=== PATIENT | female | born 1940 | race Caucasian/White ===

== ENCOUNTER 2018-06-11 18:40 | Inpatient (IN) | payer OTHER, BC ==
[2018-06-11 20:02] LABS: PLATELET COUNT 342 10^3/uL (150-400)
[2018-06-11] MEDS ORDERED: traMADol 50 MG TAB PO PRN (21:17)
[2018-06-11] MEDS ORDERED: ONDANSETRON DISINTEGRATING 4 MG TAB PO PRN (21:17)
[2018-06-11] MEDS ORDERED: ONDANSETRON 4 MG/2 ML VIAL IVP PRN (21:17)
[2018-06-11] MEDS ORDERED: D5W 1/2 NS W/ 20 KCl/L 1,000 ML IV SCH (21:30)
--- NOTE | 2018-06-11 21:39 | GHP ---
[f rep st] HISTORY AND PHYSICAL DATE OF ADMISSION: 06/11/2018 CHIEF COMPLAINT: Traumatic wound right lower extremity. HISTORY OF PRESENT ILLNESS: The patient is a 77-year-old woman who was on Eliquis for atrial fibrill ation, who sustained an injury to the medial aspect of her right lower extremity a little over 10 day s ago. She recently traveled from [place] to [place] to go on a trip to [place]. She was seen at [facility] due to increased pain at the site. A local debridement was performed and there was concer n for tracking and infection and was referred to come to the emergency room. She is having more troub le walking and even difficulty getting up to go to the bathroom which is having her limit her p.o. in take due to the pain. PAST MEDICAL HISTORY: Hypothyroidism, hypertension, atrial fibrillation, hearing loss. ALLERGIES: Doxycycline, epinephrine. SOCIAL HISTORY: No tobacco products. FAMILY HISTORY: Noncontributory. REVIEW OF SYSTEMS: No fevers or chills, extreme pain by the right lower extremity. PHYSICAL EXAM: GENERAL: A pleasant, well nourished, thin woman sitting in bed. Daughter at bedside. VITALS: 37.1, 68, 154/62, 20, 93% on room air. HEENT: Normocephalic. No gross hearing deficits. Pupils equal and round. No scleral icterus. Mucous membranes moist. LUNGS: Clear to auscultation bilaterally. CARDIAC: Irregular. EXTREMITIES: Wound on the medial aspect of her right lower extremit y. There is a traumatic wound that is at least 1 cm deep. I am unable to fully determine the extent of the wound as it is tender out of proportion. There is a small amount of erythema but not ascendi ng and minimal NEURO: Grossly intact. PSYCH: Mood and affect normal. IMPRESSION/PLAN: A 77-year-old woman with chronic anticoagulation for atrial fibrillation who sustai terrell a traumatic wound to her right lower extremity. I suspect there is retained hematoma and that th e wound is larger than it appears on the surface. She is just too tender to have this explored even with lidocaine in the emergency room. I will take her to the operating room to debride the wound, sk in and soft tissue. We talked about postoperative wound care. She will need to cancel her trip to [facility] that is planned for tomorrow /[id number]/CARLTONL
[2018-06-11] MEDS: ACETAMINOPHEN 325 MG TAB PO PRN (22:35)
--- NOTE | 2018-06-11 23:24 | EDPHY ---
H & P Stated Complaint: RLE wound - Personal History Current Tetanus/Diphtheria Vaccine: Yes - Medical/Surgical History Hx Asthma: No Hx Chronic Respiratory Disease: No Hx Diabetes: No Hx Cardiac Disease: No Hx Renal Disease: No Hx Cirrhosis: No Hx Alcoholism: No Other PMH: a-fib, GERD, - Social History Smoking Status: Former smoker Time Seen by Provider: 06/11/18 18:57 HPI/ROS: Chief complaint: Right lower extremity wound History of present illness: This is a 77-year-old female, on Eliquis for atrial fibrillation, visiting from out [facility], who presents for a right lower extremity wound. Patient fell approximately 10 days ago back home in [place]. She sustained a wound. She was evaluated by her doctor including imaging studies. The wound was cleaned and dressed. However, the wound persists. She reports an open wound with persistent pain and bleeding. She went to an urgent care today where the wound was cleaned and debrided. She was sent here for further care given the extent of the wound. Review of systems: A 10 point review of systems was obtained and other than described above was neck (Geoffrey Forman) - Physical Exam Exam: General Appearance: Alert and no distress. Eyes: Pupils equal and round no injection. Respiratory: Chest is non tender, lungs are clear to auscultation. Cardiac: regular rate and rhythm Gastrointestinal: Abdomen is soft and non tender, no masses, bowel sounds normal. Musculoskeletal: Neck is supple and non tender. Extremities have full range of motion and are non tender. Skin: Patient has a large wound to the medial aspect of the distal right lower leg. There is oozing of blood. No obvious purulent material. There is surrounding erythema and edema. (Geoffrey Forman) Constitutional: Initial Vital Signs Temperature (C) 37.1 C 06/11/18 18:45 Heart Rate 68 06/11/18 18:45 Respiratory Rate 20 06/11/18 18:45 Blood Pressure 154/62 H 06/11/18 18:45 O2 Sat (%) 93 06/11/18 18:45 O2 Delivery Mode Room Air Allergies/Adverse Reactions: doxycycline Allergy (Verified 06/11/18 18:50) epinephrine Allergy (Verified 06/11/18 18:50) Home Medications: Medication Instructions Recorded Apixaban [Eliquis] 2.5 mg PO BID 06/11/18 Atenolol [Tenormin 25 mg (*)] 25 mg PO BID 06/11/18 Esomeprazole Magnesium [Nexium 20 mg PO DAILY 06/11/18 24Hr] Herbals/Supplements -Info Only 1 ea PO DAILY 06/11/18 Latanoprost 1 drop EACHEYE HS 06/11/18 Levothyroxine [Synthroid 112 mcg 112 mcg PO DAILY06 06/11/18 (*)] Losartan Potassium [Cozaar 50 mg 50 mg PO BID 06/11/18 (*)] Propafenone HCl 225 mg PO TID 06/11/18 Acetaminophen [Tylenol 325mg (*)] 650 mg PO Q4H PRN tab 06/12/18 Cephalexin [Keflex (*)] 500 mg PO QID #20 cap 06/12/18 traMADol [Ultram 50 mg (*)] 50 mg PO Q6HRS PRN #20 tab 06/12/18 Medical Decision Making - Diagnostics Imaging: I viewed and interpreted images myself ED Course/Re-evaluation: Patient is seen in conjunction with my secondary supervising physician Dr. Thom Jarvis. Patient presents for a persistent wound. This appears to be a nonhealing wound with concern for associated infection. General surgery, Dr. Bernadette Melendez has consulted on this patient. She will admit this patient. Start her on Ancef. Take her to the operating room tomorrow for further evaluation and care. The plan has been discussed with the patient who voiced understanding and agreement with it. (Geoffrey Forman) Differential Diagnosis: Included but not limited to persistent wound, abscess, cellulitis, osteomyelitis (Geoffrey Forman) Other Provider: I did evaluate this patient independently. It is difficult to tell whether this represents a wound infection or simply poorly healed wound. There is slight erythema surrounding but no warmth. No obvious purulence. Serosanguineous fluid present. (Thom Jarvis) - Data Points Laboratory Results: Laboratory Results 06/11/18 19:50 06/11/18 19:50 Medications Given: Acetaminophen (Tylenol) 650 mg PO Q4H PRN PRN Reason: Pain, Mild Stop: 12/08/18 21:16 Last Admin: 06/12/18 05:40 Dose: 650 mg Cephalexin HCl (Keflex) 500 mg PO Q6HRS MYCHAL PRN Reason: Protocol Stop: 07/12/18 11:59 Last Admin: 06/12/18 12:12 Dose: 500 mg Propafenone HCl (Rythmol) 225 mg PO TID [facility] Stop: 12/09/18 15:59 Last Admin: 06/12/18 15:05 Dose: 225 mg Discontinued Medications Bupivacaine HCl (Sensorcaine 0.5% Vial) Confirm Administered Dose 30 ml .ROUTE .STK-MED ONE Stop: 06/12/18 08:14 Last Admin: 06/12/18 08:50 Dose: 10 ml Cefazolin Sodium/Dextrose (Ancef 1 Gm (Premix)) 50 mls @ 200 mls/hr IV Q8HRS [facility] PRN Reason: Protocol Stop: 07/11/18 21:59 Last Admin: 06/12/18 05:33 Dose: 50 mls Potassium Chloride/Dextrose/Sod Cl (D5w 1/2 Ns W/ 20 Kcl/L) 1,000 mls @ 50 mls/ hr IV CONT [facility] Stop: 12/08/18 21:29 Last Admin: 06/11/18 22:41 Dose: 1,000 mls Lidocaine HCl (Lidocaine Hcl 1%) Confirm Administered Dose 300 mg .ROUTE .STK- MED ONE Stop: 06/12/18 08:13 Last Admin: 06/12/18 08:50 Dose: 100 mg Miscellaneous Medication (Propafenone Hcl [Propafenone Hcl]) 225 mg PO TID [facility] Stop: 12/09/18 11:24 Last Admin: 06/12/18 14:32 Dose: Not Given Sodium Bicarbonate (Sodium Bicarbonate) Confirm Administered Dose 50 meq .ROUTE .STK-MED ONE Stop: 06/12/18 08:14 Last Admin: 06/12/18 09:14 Dose: Not Given Departure - Departure Disposition: [facility] Acute Clinical Impression: Open wound of skin
[2018-06-12] MEDS: ACETAMINOPHEN 325 MG TAB PO PRN ×2 (05:40→23:23)
[2018-06-12] MEDS ORDERED: PROPOFOL 200 MG/20 ML VIAL ONE ×2 (07:54→08:44)
--- NOTE | 2018-06-12 08:01 | PDANEPAE ---
ANE Past Medical History - Cardiovascular History Hx Hypertension: Yes Hx Arrhythmias: Yes Hx Chest Pain: No Hx Coronary Artery / Peripheral Vascular Disease: No Hx CHF / Valvular Disease: No Cardiovascular History Comment: atrial fibrillation - Pulmonary History Hx COPD: No Hx Asthma/Reactive Airway Disease: No Hx Recent Upper Respiratory Infection: No Hx Oxygen in Use at Home: No Hx Sleep Apnea: No Sleep Apnea Screening Result - Last Documented: Negative - Neurologic History Hx Cerebrovascular Accident: No Hx Seizures: No Hx Dementia: No Neurologic History Comment: Pt's reports she is having some memory issues - Endocrine History Hx Diabetes: No Hypothyroid: Yes Hyperthyroid: No Obesity: no - Renal History Hx Renal Disorders: No Renal History Comment: Hyponatremia on admission, pt's family reports issues with low sodium about 5 years ago. No significant changes in MS noted in the last month - Liver History Hx Hepatic Disorders: No - GI History GERD: moderate - Chronic Pain History Chronic Pain: No - Surgical History Prior Surgeries: hysteroscopy, thyroidectomy, choclear implant surgery, colectomy and ileostomy, vitrectomy ANE Review of Systems Review of Systems: - Exercise capacity METS (RN): 4 METS ANE Patient History - Allergies Allergies/Adverse Reactions: doxycycline Allergy (Verified 06/11/18 18:50) epinephrine Allergy (Verified 06/11/18 18:50) - Home Medications Home Medications: Apixaban [Eliquis] 2.5 mg PO BID 06/11/18 [Last Taken 06/11/18 08:00] Atenolol [Tenormin 25 mg (*)] 25 mg PO BID 06/11/18 [Last Taken 06/11/18 08:00] Esomeprazole Magnesium [Nexium 24Hr] 20 mg PO DAILY 06/11/18 [Last Taken ] Herbals/Supplements -Info Only 1 ea PO DAILY 06/11/18 [Last Taken 06/11/18] Latanoprost [Latanoprost] 1 drop EACHEYE HS 06/11/18 [Last Taken 06/10/18] Levothyroxine [Synthroid 112 mcg (*)] 112 mcg PO DAILY06 06/11/18 [Last Taken ] Losartan Potassium [Cozaar 50 mg (*)] 50 mg PO BID 06/11/18 [Last Taken 08:00] Propafenone HCl 225 mg PO TID 06/11/18 [Last Taken 06/11/18 12:00] - NPO status NPO Since - Liquids (Date): 06/12/18 NPO Since - Liquids (Time): 00:01 NPO Since - Solids (Date): 06/12/18 NPO Since - Solids (Time): 00:01 - Smoking Hx Smoking Status: Former smoker (stopped about 40 years ago) - Family Anes Hx Family Anes Hx: none ANE Labs/Vital Signs - Labs Result Diagrams: 06/11/18 19:50 06/11/18 19:50 - Vital Signs Blood Pressure: 139/80 Heart Rate: 78 Respiratory Rate: 18 O2 Sat (%): 96 Height: 157.48 cm Weight: 46.266 kg ANE Physical Exam - Airway Neck exam: FROM Mallampati Score: Class 2 Mouth exam: normal dental/mouth exam (full implants) - Pulmonary Pulmonary: clear to auscultation - Cardiovascular Cardiovascular: irregularly irregular - ASA Status ASA Status: III ANE Anesthesia Plan Anesthesia Plan: GA with mask
[2018-06-12] MEDS ORDERED: LIDOCAINE 1% 300 MG/30 ML SDV ONE (08:12)
[2018-06-12] MEDS ORDERED: NA BICARBONATE 50 MEQ/50 ML VIAL ONE (08:13)
[2018-06-12] MEDS ORDERED: BUPIVACAINE 0.5% 30 ML SDV ONE (08:13)
[2018-06-12] MEDS ORDERED: NS 1,000 ML IV SCH (08:15)
--- NOTE | 2018-06-12 08:25 | POSTOPPROG ---
Post Op Note Date of Operation: 06/12/18 Surgeon: Bernadette Melendez Anesthesiologist: jessica Anesthesia: IV Sedation Pre-op Diagnosis: wound RLE Post-op Diagnosis: same Indication: 77 yo with traumatic hematoma on elaquis. Procedure: debride skin soft tissue 15 sq cm Findings: 6x2.5x1 Inf/Abcess present in the surg proc area at time of surgery?: Yes Depth: Deep Incisional (Fascial) EBL: Minimal Specimen(s): culture
[2018-06-12] MEDS ORDERED: RANITIDINE 50 MG/2 ML VIAL ONE (08:26)
[2018-06-12] MEDS ORDERED: PHENYLEPHRINE HCL 100 MCG/ML SYR ONE (08:49)
[2018-06-12] MEDS ORDERED: NALOXONE HCL 0.4 MG/ML INJ IVP PRN (08:57)
[2018-06-12] MEDS ORDERED: fentaNYL 100 MCG/2 ML INJ IVP PRN (08:57)
[2018-06-12] MEDS ORDERED: ONDANSETRON 4 MG/2 ML VIAL IVP PRN (08:57)
--- NOTE | 2018-06-12 09:11 | POSTANESTH ---
Post Anesthetic Evaluation Cardiovascular Status: Similar to Pre-Op Cond Respiratory Status: Normal, Stable Level of Consciousness/Mental Status: Can Participate in Eval Pain Control: Adequate, Prn Tx Ordered Nausea/Vomiting Control: Adequate, Prn Tx Ordered Complications Possibly Related to Anesthesia: None Noted
--- NOTE | 2018-06-12 09:37 | GOP ---
[f rep st] OPERATIVE REPORT DATE OF OPERATION: 06/12/2018 SURGEON: Bernadette Melendez MD ANESTHESIA: IV general ANESTHESIOLOGIST: Dr. Fox Black. PREOPERATIVE DIAGNOSIS: Traumatic wound, right lower extremity. POSTOPERATIVE DIAGNOSIS: Traumatic wound, right lower extremity. PROCEDURE PERFORMED: Debridement skin soft tissue, including adipose tissue, 15 square cm. FINDINGS: Wound measures 6 x 2.5 x 1 cm. There was retained hematoma. SPECIMENS: Deep tissue for micro. ESTIMATED BLOOD LOSS: 5 cc. INDICATIONS: The patient is a 77-year-old woman on chronic anticoagulation, who developed a traumati c wound. There was concern for cellulitis. She was seen by Urgent Care, and debridement was attempt ed. The pain was increasing, and I was unable to debride this further in the emergency room. DESCRIPTION OF PROCEDURE: The patient was brought into the operating room, placed supine on the tabl e, and monitored anesthesia care with IV sedation was performed. Her right lower extremity was prepp ed and draped in the usual sterile fashion. I explored the area. The wound was involved proximally and distally. I used electrocautery to excise the devitalized tissue, including adipose tissue. It measured 6 x 2.5 x 1 cm. Hemostasis was achieved. The wound was irrigated. Britney Hydrofera Blue a nd an Allevyn were placed. She was awakened in the operating room, transferred to PACU in stable con dition. /[id number]/MODL
[2018-06-12] MEDS ORDERED: PROPAFENONE HCL 225 MG PO SCH ×2 (11:25→16:00)
[2018-06-12] MEDS: CEPHALEXIN 500 MG CAP PO SCH ×3 (12:12→23:21)
--- NOTE | 2018-06-12 13:38 | GCON ---
[f rep st] CONSULTATION INTERNAL MEDICINE CONSULTATION DATE OF CONSULTATION: 06/12/2018 REASON FOR CONSULTATION: Medical opinion regarding hyponatremia. REQUESTING PHYSICIANS: Dr. Bernadette Melendez MD, General Surgery. HISTORY: Tasha is a 77-year-old female visiting from [place]. She had plans to fly to [place] thi s morning with her family. Approximately 2 weeks ago while in [place], she had a traumatic injury t o her right lower extremity, as well as falling onto her right hip. X-ray and CT scan of the right h ip in [place] were negative. She got some wound care to the right lower extremity, but this worsene d the situation, as the dressing dried onto the surface of the wound. Subsequently, she developed in creasing erythema extending from the leg wound. She is currently staying in [place] with her jose guillaume who lives locally. She has canceled her trip to [place] and plans to return to [place] as soon as she is medically cleared to drive home. She went to surgery this morning with Dr. Melendez for debridem ent of retained hematoma which is likely infected. She is on Eliquis for atrial fibrillation which l ikely worsened the hematoma. She continues to have right hip pain with ambulation, although she is g etting around okay. She has not had any fever. Regarding her hyponatremia, she does have a history of being told she had low sodium levels once in t he past when her hysterectomy was canceled due to low sodium. She was told to go home and drink a lo t of Gatorade and re-presented the next day, and repeat blood work was acceptable and surgery proceed ed. She has been told by her primary care doctor to limit her water intake and increase her salt int isabela. She struggles to do this because her has opposite recommendation of high water and low salt for his history of hypertension, but she will typically salt her food more heavily at the table. She still tries to push water, however, drinking 4-5 glasses per day and seems to believe that this is good for her despite her previous recommendation of limited fluid intake. She denies any shortne ss of breath or edema. She denies any confusion. PAST MEDICAL HISTORY: 1. Atrial fibrillation. 2. Hypertension. 3. Hypothyroidism. 4. Hearing loss status post cochlear implant. 5. Hyponatremia as above. MEDICATIONS: Please see computer record for full detailed list. ALLERGIES: Doxycycline. SOCIAL HISTORY: She smoked in college. She does drink some alcohol, but has not had any for 3 weeks since her fall. She lives in [place], currently staying locally in her daughter's home in [place] with her . Daughter's family flew to [place] this morning as scheduled. Her daughter is flyin g to [place] tomorrow at noon to meet with them. The patient plans to stay with her at her nato post's home until she is cleared by Dr. Melendez to drive back to [place]. Dr. Melendez wants her to do a couple visits at [facility] prior to returning home. REVIEW OF SYSTEMS: Complete review of systems obtained. Review of systems negative regarding consti tutional, HEENT, GI, pulmonary, cardiovascular, , hematology, skin, musculoskeletal, endocrine, psy ch except for positives and negatives as in HPI. FAMILY HISTORY: Reviewed, noncontributory to the presenting complaint. PHYSICAL EXAMINATION: GENERAL: Well-developed, well-nourished female, in no acute distress. VITAL SIGNS: Temperature 36.9, pulse 60, blood pressure 109/60, saturating 96% on room air. EYES: Normal conjunctivae. Pupils equal and react to light. ENT: Normal ears and nose. Hearing intact. Normal teeth. Oropharynx moist. NECK: Trachea midline. No thyromegaly. CHEST: Normal effort. Lungs clear to auscultation bilaterally. CARDIOVASCULAR: Regular rhythm. No murmur. No lower extremity edema. ABDOMEN: Soft, nontender. No hepatosplenomegaly. SKIN: Warm, dry, intact, without rash. MUSCULOSKELETAL: No cyanosis or clubbing. Strength 5/5 upper and lower extremities. NEURO: Cranial nerves intact. Normal sensation to light touch. PSYCH: Alert and oriented x3. Normal mood and affect. Normal judgment. Normal memory. LABORATORY DATA: White count 4.63, hematocrit 37.8, platelets 342. Sodium 123, recheck today after receiving IV normal saline overnight is 127. Potassium 4.0, chloride 88, bicarb 27, BUN 18, creatini ne 0.6, glucose 90. Tib-fib x-ray is negative. ASSESSMENT/PLAN: 1. Hyponatremia. Sodium has improved from 123 to 127 with normal saline. She may have had an eleme nt of hypovolemia. 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 We will check a urine sodium. We will initiate fluid restriction of 1200 cc pe r day and may consider adding salt tablets. I discussed with them option of further inpatient monito ring versus discharging home with home health and close outpatient monitoring of her sodium, as I thi nk she probably runs chronically low given her normal mental status at presentation at the current [facility]. They are going to decide how they would like to proceed. We may need to find her a local [facility] doctor to monitor serum sodiums until she returns to [place]. Anticipate she will be in the area for 1-2 more weeks. 2. Infected leg hematoma status post debridement. Will continue with wound care. Keflex has been p rescribed by Dr. Melendez. I personally spoke with Dr. Peters, currently covering for Dr. Melendez. T he patient is cleared from a surgical standpoint for discharge. As discussed above, I am working wit h the family regarding whether or not we will arrange for outpatient versus further inpatient monitor ing of her sodium. Internal Medicine will assume primary attending care and arrange discharge when a ppropriate from this standpoint. 3. Atrial fibrillation. Continue propafenone and atenolol. We will hold her Eliquis for now, but c an likely be restarted soon as I do not think there is any acute bleeding, just old retained blood. 4. Hypertension. Blood pressure running on the low side. We will order losartan, but watch blood p ressures closely. Thank you very much for this consultation. As discussed above, Internal Medicine will assume care an d discharge when medically appropriate. /[id number]/MODL
[2018-06-12] MEDS: PROPAFENONE HCL 150 MG TAB PO SCH ×2 (15:05→21:02)
--- NOTE | 2018-06-12 16:21 | PDMN ---
Medical Necessity Medical necessity: [facility] General Admission: 77 yo w/ increased pain to medial aspect RLE injury. Recent local debridement done by urgent care and pt sent to ED for admit due to concern re extent of infection. Pt having difficulty walking due to pain. Taken to OR for I&D. During this stay, pt noted to be hyponatremic w/ Na123, some improvement w/ IVF but still low at 127. Suspicious for SIADH. Will require additional MN to check urine sodium, initiate fluid restriction and recheck labs. Meets [facility] IP criteria for Gen Admit w/ new severe electrolyte abnormality Na<130. Hx HTN, hypothyroid, afib. Change to IP status 06/12/18@1548 per MD order
--- NOTE | 2018-06-12 17:16 | ASMTCMCOM ---
CM Note CM Note Notes: Pt admitted for wound infection and hyponatremia. Pt lives in [place] and was visiting dtr on their way to [place], which trip was canceled due to hospitalization. Dtr continued on to [place] and pt will discharge to dtr's home and follow up with wound care clinic on Thursday. It is possible pt could continue onto [place] pending surgeon's eval and sodium levels Thursday. If not, pt will need HHC at dtr's house until she is able to drive back to [place]. [facility] has accepted as long as surgeon can follow for hyponatremia. CM to follow. D/C Plan: Home independently (then to [place] with family) or [facility] at dtr's house Date Signed: 06/12/2018 05:15 PM Electronically Signed By:Dyana Stoddard
[2018-06-12] MEDS: LOSARTAN POTASSIUM 50 MG TAB PO SCH (20:58)
[2018-06-12] MEDS ORDERED: LATANOPROST 0.005% 2.5 ML OPHT DROPS EACHEYE SCH (21:00)
[2018-06-12] MEDS: ATENOLOL 25 MG TAB PO SCH (21:02)
[2018-06-13] MEDS: CEPHALEXIN 500 MG CAP PO SCH (05:30)
[2018-06-13] MEDS ORDERED: LEVOTHYROXINE 112 MCG TAB PO SCH (06:00)
[2018-06-13] MEDS ORDERED: COSYNTROPIN 0.25 MG/2 ML SYRINGE IVP ONE (06:00)
[2018-06-13 07:38] VITALS: BP 142/63
[2018-06-13] MEDS: ACETAMINOPHEN 325 MG TAB PO PRN ×2 (08:00→13:34)
[2018-06-13] MEDS: ATENOLOL 25 MG TAB PO SCH (08:00)
[2018-06-13] MEDS: LOSARTAN POTASSIUM 50 MG TAB PO SCH (08:01)
[2018-06-13] MEDS: PROPAFENONE HCL 150 MG TAB PO SCH (08:01)
[2018-06-13] MEDS ORDERED: PANTOPRAZOLE SODIUM 40 MG TAB PO SCH (09:00)
--- NOTE | 2018-06-13 09:24 | SOAPPROG ---
SOAP Progress Note Assessment/Plan: Assessment: 77yo F s/p RLE debridement for traumatic wound - wound site looks good, Allevyn re-inforced last evening - awaiting Na levels, per IM - DC when stable medically - fu in clinic tomorrow with PA for dressing change Plan: 06/13/18 09:23 Subjective: some pain, overall feeling well Objective: Vital Signs Temp Pulse Resp BP Pulse Ox 36.9 C 62 16 142/63 H 96 06/13/18 07:34 06/13/18 07:34 06/13/18 07:34 06/13/18 07:34 06/13/18 07:34 Laboratory Results 06/13/18 05:00 06/12/18 06/13/18 06/14/18 05:59 05:59 05:59 Intake Total 800 Output Total 125 Balance 675 ICD10 Worksheet Patient Problems: Problems Problem Status Onset Open wound of skin Acute
[2018-06-13] MEDS ORDERED: AMOXICILLIN/CLAVULANATE POT 875/125 MG TAB PO SCH (09:45)
--- NOTE | 2018-06-13 09:50 | PDIAF ---
- Diagnosis Diagnosis: infected hematoma s/p I&D, hyponatremia Code Status: Full Code - Medication Management Discharge Medications: electronically signed and located in the Home Medication List. - Orders Services needed: Home Care, Registered Nurse, Physical Therapy, Occupational Therapy Home Care Face to Face: I certify that this patient was under my care and that I had the required [id number] encounter meeting the encounter requirements on the discharge day. My findings support the fact that the patient is homebound as defined in Home Care Face to Face Continued: CMS Chapter 7 Medicare Benefits Manual 30.1.1 , The condition of the patient is such that there exists a normal inability to leave home and consequently, leaving home would require a considerable and taxing effort. Diet Recommendation: no restrictions on diet Wound Care Instructions: per Dr. Melendez Additional Instructions: Please send patient home with extra Allevyn Follow up with Lorie LITTLEJOHN on Thursday at 2:45 pm May shower if uses cast protector which can be purchased at [facility] High salt, low fluid diet Fluid restriction 1500 ml per day Recheck sodium level in 2-3 days - follow-up with internal medicine Wound culture pending - please follow up result - Labs/Radiology BMP Date: 06/15/18 - Follow Up Care Current Providers and Referrals: Lorie Harrington PA [Physician Physician Primary Care Sports Medicine] - 06/14/18 2:45 pm Korey Duncan MD [Medical Doctor] - 1-2 days (Or any provider in that office to follow-up low sodium)
--- NOTE | 2018-06-13 12:45 | ASMTDCNOTE ---
Case Management Discharge Discharge Order Complete? Answers: Yes Patient to Obtain Answers: via Family Medications Transportation Arranged Answers: Family/Friends Faxed Final Orders Answers: Yes Agency/Facility Transfer Answers: Yes Report Printed & Faxed to Receiving Agency Family Notified Answers: Yes Notes: in room Discharge Comments Notes: CM met with patient and , discussed discharge plan. Patient and are visiting from [place] and currently staying at their daughters home. The patient is to discharge today and will follow up with Dr. Melendez tomorrow for wound care and also Dr. Duncan for PCP/sodium level follow up. The patient was given Dr. Melendez and Dr. Duncan contact info, CM LM for the Nutritional Yeast Supervisor [place] K[place] [phone] with [facility] to share the patient will be calling to schedule an appointment in 24-48 hours. CM discussed discharge to home with [facility], the patient to start with RN care on Thursday and patient gave [phone] (daughter home phone) as # to call and address [address] [place] [address] Dr. Dougherty, [id number]. CM explained & delivered IM, patient signed for receipt, and IM placed in back of chart. Patient and state understanding of discussion. CM available to support if any further CM needs arise. Date Signed: 06/13/2018 12:45 PM Electronically Signed By:Patti Castellano
--- NOTE | 2018-06-13 14:08 | ASDISCHSUM ---
Discharge Information Plan Status:Home with Home Health Medically Cleared to Leave:06/12/2018 Discharge Date:06/13/2018 01:50 PM CM D/C Disposition:Home Health Service ADT D/C Disposition:Home Health Service Projected Discharge Date:06/13/2018 12:00 AM Transportation at D/C:Family Discharge Delay Reason: Follow-Up Date:06/13/2018 12:00 AM Discharge Slot:2 - 12:01 pm - 18:00 pm Final Diagnosis:infected hematoma s/p I&D, hyponatremia Placement Information Patient Contact Information Contact Name:MARCO Relationship: Address:[address] [facility] City:[place] Alternate Phone: State/Zip Code:[place] [address] Email: Financial Information Financial Class:Medicare Primary Plan Desc:MEDICARE OUTPATIENT Primary Plan Number:[id number] Secondary Plan Desc:BC OUT OF STATE [facility] Secondary Plan Number:[id number] Assessment Information [facility] CM Progress Note CM Note CM Note Notes: Pt admitted for wound infection and hyponatremia. Pt lives in [place] and was visiting [facility] on their way to [place], which trip was canceled due to hospitalization. Dtr continued on to [place] and pt will discharge to [facility]'s home and follow up with wound care clinic on Thursday. It is possible pt could continue onto [place] pending surgeon's eval and sodium levels Thursday. If not, pt will need HHC at [facility] [place] until she is able to drive back to [place]. [facility] has accepted as long as surgeon can follow for hyponatremia. CM to follow. D/C Plan: Home independently (then to [place] with family) or [facility] at [facility] house Date Signed: 06/12/2018 05:15 PM Electronically Signed By:Dyana Stoddard Case Management Discharge Plan Note Case Management Discharge Discharge Order Complete? Answers: Yes Patient to Obtain Answers: via Family Medications Transportation Arranged Answers: Family/Friends Faxed Final Orders Answers: Yes Agency/Facility Transfer Answers: Yes Report Printed & Faxed to Receiving Agency Family Notified Answers: Yes Notes: in room Discharge Comments Notes: CM met with patient and , discussed discharge plan. Patient and are visiting from [place] and currently staying at their daughters home. The patient is to discharge today and will follow up with Dr. Melendez tomorrow for wound care and also Dr. Duncan for PCP/sodium level follow up. The patient was given Dr. Melendez and Dr. Duncan contact info, LM for the Consulting Project Director [place] Kc [phone] with [facility] to share the patient will be calling to schedule an appointment in 24-48 hours. CM discussed discharge to home with [facility], the patient to start with RN care on Thursday and patient gave [phone] (daughter home phone) as # to call and address [address] [place] [address] Dr. Dougherty, [id number]. CM explained & delivered IM, patient signed for receipt, and IM placed in back of chart. Patient and state understanding of discussion. CM available to support if any further CM needs arise. Date Signed: 06/13/2018 12:45 PM Electronically Signed By:Patti Castellano Intervention Information Intervention Type:*IM-Signed Date of Service:06/13/2018 12:47 PM Patient Type:Inpatient Staff Member:Patti Castellano Hours: Discipline: Severity: Comment:CM explained & delivered IM, patient s igned for receipt, and IM placed in back of chart.
--- NOTE | 2018-06-13 16:19 | GDS ---
[f rep st] DISCHARGE SUMMARY DISCHARGE DIAGNOSES: 1. Infected leg hematoma status post debridement. 2. 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 3. Atrial fibrillation. 4. Hypertension. HISTORY: Tasha is a 77-year-old female visiting from [place]. Two weeks ago she hit her leg and had a traumatic hematoma that subsequently got infected. She presented to the emergency room and had debridement and evacuation of the hematoma with Dr. Melendez. Cultures from surgery are growing a nonl actose fermenting gram-negative ortega. We are changing her antibiotic from Keflex to Augmentin. Final sensitivities are pending. She also presented with hyponatremia and a sodium of 123. She received IV normal saline which increa sed her sodium to 127. She does have a history of hyponatremia in the past, and has been told to vitale it her fluid and increase her salt intake. Urine sodium was 22, which is borderline for SIADH. On t he day of discharge sodium has risen to 130. She will continue on a high salt diet and a fluid restr iction. Recommend repeat sodium in 2 days. She will be staying in the area for a little while until her health status is improved. I referred her to local internal medicine physicians for followup. DISCHARGE MEDICATIONS: Please see computerized record for full detailed list. New medications: Augmentin 875 mg p.o. twice daily for 1 week, tramadol 50 mg p.o. q.6 hours as need ed. ADDITIONAL DISCHARGE INSTRUCTIONS: 1. Follow up with Dr. Melendez tomorrow in [facility] as scheduled. 2. Follow up with a local primary care 1-2 days. 3. Fluid restriction, 1500 cc per day, and liberal salt intake. 4. Repeat sodium in 2-3 days with local internal medicine followup. 5. Wound culture pending. Please follow up result. Greater than 30 minutes' time was spent arranging this discharge. Patient was seen and examined by kendall myers on the day of discharge. /[id number]/MODL
== END 2018-06-13 13:50 | disposition home health service (06) | DRG 571 ==
LOC: F3E 22:05 → OBSVTOIN 06-12 15:48
PROVIDERS: ADMIT Surgery; ATTEND Surgery
PROC: 0JBN0ZZ Excision of Right Lower Leg Subcutaneous Tissue and Fascia, Open Approach (ICD-10-PCS; principal; 2018-06-12 08:00)
DX: S81.801A Unspecified open wound, right lower leg, initial encounter (principal); E87.1 Hypo-osmolality and hyponatremia; W22.8XXA Striking against or struck by other objects, initial encounter; I48.91 Unspecified atrial fibrillation; E03.9 Hypothyroidism, unspecified; I10 Essential (primary) hypertension; Z79.01 Long term (current) use of anticoagulants
CPT/HCPCS: 97116-GP; 97161-GP; 97165-GO; G0378; J0690; J0834; J2370; J2704; J2780